=== PATIENT | female | born 1965 | race Caucasian/White ===

== ENCOUNTER 2019-12-28 17:28 | Emergency (ER) | payer BC ==
[~2019-12-28] VITALS: Ht 170.2 cm; Wt 114.0 kg
[2019-12-28] MEDS ORDERED: vancomycin/NS 1 GM ADD-VANTAGE 250 ML IV ONE (20:15)
[2019-12-28] MEDS ORDERED: CefTRIAXone 2gm/D5W 50ml 50 ML IV ONE (20:15)
--- NOTE | 2019-12-28 20:20 | NUR ---
sent patient to bathroom for grown change
[2019-12-28 21:03] LABS: BASOPHILS # (AUTO) 0.1 X10'3 (0-0.2); BASOPHILS % (AUTO) 0.4 % (0-1); EOSINOPHILS # (AUTO) 0.1 X10'3 (0-0.9); EOSINOPHILS % (AUTO) 0.4 % (0-6); HEMATOCRIT 38.9 % (35.0-45.0); HEMOGLOBIN 13.2 g/dl (12.0-16.0); LYMPHOCYTES # (AUTO) 3.3 X10'3 (1.1-4.8); LYMPHOCYTES % (AUTO) 19.2 % (21-51); MEAN CORPUSCULAR HEMOGLOBIN 29.5 PG (27.0-31.0); MEAN CORPUSCULAR VOLUME 86.7 FL (78-98); MEAN PLATELET VOLUME 10.1 FL (7.4-10.4); MONOCYTES # (AUTO) 1.5 X10'3 (0-0.9); MONOCYTES % (AUTO) 8.6 % (2-12); NEUTROPHILS # (AUTO) 12.3 X10'3 (1.8-7.7); NEUTROPHILS % (AUTO) 71.4 % (42-75); PLATELET COUNT 209 X10'3 (140-440); RED BLOOD COUNT 4.49 X10'6 (4.20-5.60); RED CELL DISTRIBUTION WIDTH 14.3 % (11.5-14.5); WHITE BLOOD COUNT 17.2 X10'3 (4.5-11.0)
[2019-12-28] MEDS ORDERED: CEPH-572 PO (21:14)
[2019-12-28] MEDS ORDERED: SULF1TAB49 PO (21:14)
[2019-12-28 23:49] VITALS: BP 148/80
== END 2019-12-28 23:45 | disposition home or self-care (01) ==
LOC: ER 17:29
DX: L02.411 Cutaneous abscess of right axilla (principal); L03.111 Cellulitis of right axilla; L73.8 Other specified follicular disorders; E11.9 Type 2 diabetes mellitus without complications; Z88.1 Allergy status to other antibiotic agents; Z79.2 Long term (current) use of antibiotics; Z79.899 Other long term (current) drug therapy
CPT/HCPCS: 36415; 83605; 84145; 85025; 87040; 87070; 87077; 87186; 96365; 96367; 99284; J0696; J3370; 99283

== ENCOUNTER 2021-03-19 16:24 | Emergency (ER) | payer BC ==
[~2021-03-19] VITALS: Ht 167.6 cm; Wt 111.0 kg
[2021-03-19 16:27] VITALS: BP 157/75
== END 2021-03-19 19:44 | disposition left against medical advice (07) ==
LOC: ER 16:24
DX: L02.411 Cutaneous abscess of right axilla (principal); L02.412 Cutaneous abscess of left axilla; Z53.21 Procedure and treatment not carried out due to patient leaving prior to being seen by health care provider